=== PATIENT | female | born 1995 | race Caucasian/White ===

== ENCOUNTER 2019-12-22 23:04 | Emergency (ER) | payer MEDICAID ==
[~2019-12-22] VITALS: Ht 172.7 cm; Wt 59.0 kg
[2019-12-23] MEDS ORDERED: IPRATROPIUM BROM 0.5 MG/2.5ML INH SOL NEB ONE (00:15)
[2019-12-23] MEDS ORDERED: ALBUTEROL SULF 2.5 MG/0.5ML(0.5%) NEB SOLN NEB ONE (00:15)
[2019-12-23] MEDS ORDERED: DexAMETHasone SOD PHOS 10MG/1ML VIAL INJ ONE (00:36)
[2019-12-23 02:21] VITALS: BP 101/67
== END 2019-12-23 03:05 | disposition home or self-care (01) ==
LOC: ER 23:11
DX: J45.41 Moderate persistent asthma with (acute) exacerbation (principal); Z20.828 Contact with and (suspected) exposure to other viral communicable diseases
CPT/HCPCS: 36415; 71045; 87426; 94640; 96365; 99284; J1100; J7060; J7644